=== PATIENT | male | born 1980 | race Caucasian/White ===

== ENCOUNTER 2016-12-17 18:33 | Emergency (ER) | payer BC ==
[2016-12-17] MEDS ORDERED: Sodium Chloride 0.9% 1000 ML 1,000 ML IV SCH (19:15)
[2016-12-17] MEDS ORDERED: CLINDAMYCIN-D5W 900 MG/50 ML*** 50 ML IV ONE ×2 (19:17→19:21)
[2016-12-17] MEDS ORDERED: Sodium Chloride 0.9% 1000 ML 1,000 ML ONE (19:22)
--- NOTE | 2016-12-17 19:23 | ERPHSYRPT ---
- History of Present Illness Time Seen by Provider: 12/17/16 19:05 Source: patient Exam Limitations: no limitations Patient Subjective Stated Complaint: patients left foot is swollen and hot to touch Triage Nursing Assessment: pt alert and oriented no other difficulties was out in yard doing work cleaning stuff up and his foot began to swell left foot is swollen red and hot to touch pedal pulse present has some red heading up ankle Physician History: PT WAS DOING SOME YARD WORK AT A FRIEND'S HOME AND AT 1300 YESTERDAY PT NOTICED HIS LEFT FOOT WAS RED, SWOLLEN AND TENDER TO TOUCH. PT DENIES FEVER, NAUSEA, VOMITING, NUMBNESS. Allergies/Adverse Reactions: No Known Drug Allergies Allergy (Unverified 12/17/16 18:51) Hx Tetanus, Diphtheria Vaccination/Date Given: Yes Hx Influenza Vaccination/Date Given: No Hx Pneumococcal Vaccination/Date Given: No Immunizations Up to Date: Yes - Review of Systems Constitutional: No Fever Abdominal/Gastrointestinal: No Nausea, No Vomiting Musculoskeletal: Other (LEFT FOOT SWELLING, TENDERNESS AND REDNESS.) Neurological: No Sensory Changes All Other Systems: Reviewed and Negative - Past Medical History Pertinent Past Medical History: Yes Psycho-Social History: Anxiety, Depression - Past Surgical History Past Surgical History: Yes Musculoskeletal: Orthopedic Surgery Other Surgical History: steel pplate in pelvis - Social History Smoking Status: Current every day smoker Drug Use: none - Nursing Vital Signs Nursing Vital Signs: Initial Vital Signs Pulse Rate 94 Respiratory Rate 18 Blood Pressure [Left Arm] 114/78 Pain Intensity 2 - Physical Exam General Appearance: alert Eyes, Ears, Nose, Throat Exam: TMs normal, pharynx normal, moist mucous membranes Neck Exam: normal inspection Cardiovascular/Respiratory Exam: normal breath sounds, heart sounds normal Gastrointestinal/Abdominal Exam: soft (B.S. NORMAL) Back Exam: normal range of motion Hips Exam: left: normal range of motion Legs Exam: left leg: normal range of motion Knees Exam: left knee: normal range of motion Ankle Exam: left ankle: normal range of motion, soft tissue tenderness (MILD EDEMA, ERYTHEMA AND TENDERNESS.) Foot Exam: left foot: soft tissue tenderness (MILD EDEMA, ERYTHEMA AND TENDERNESS OF THE LEFT FOOT.) Neuro/Tendon Exam: normal sensation Mental Status Exam: alert, cooperative Skin Exam: other (SUPERFICIAL LINEAR ABRASSIONS ON THE DORSAL ASPECT OF THE LEFT FOOT) SpO2 Interpretation: normal SpO2: 98 Oxygen Delivery: Room Air - Course Nursing assessment & vital signs reviewed: Yes Ordered Tests: Active Orders 24 hr Category Date Time Status IV Insertion STAT Care 12/17/16 19:15 Active BLOOD CULTURE Stat Lab 12/17/16 19:30 Received CBC W DIFF Stat Lab 12/17/16 19:15 Completed CMP Stat Lab 12/17/16 19:15 Completed Erythrocyte Sedimentation Rate Stat Lab 12/17/16 19:15 Received Medication Summary Generic Name Dose Route Start Last Admin Trade Name Freq PRN Reason Stop Dose Admin Sodium Chloride 1,000 mls @ 100 mls/hr 12/17/16 19:15 12/17/16 19:23 Sodium Chloride 0.9% 1000 Ml IV 01/16/17 19:14 100 mls/hr .Q10H RAÚL Administration Discontinued Medications Generic Name Dose Route Start Last Admin Trade Name Freq PRN Reason Stop Dose Admin Clindamycin HCl/Dextrose 50 mls @ 100 mls/hr 12/17/16 19:17 12/17/16 19:23 Clindamycin-D5w 900 Mg/50 Ml IV 12/17/16 19:46 100 mls/hr STAT ONE Administration Clindamycin HCl/Dextrose Confirm 12/17/16 19:21 Clindamycin-D5w 900 Mg/50 Ml Administered 12/17/16 19:22 Dose 50 mls @ ud IV .STK-MED ONE Lab/Rad Data: Laboratory Result Diagrams 12/17/16 19:15 12/17/16 19:15 Laboratory Results 12/17/16 12/17/16 Range/Units 19:15 19:15 WBC 8.6 (4.0-10.5) K/mm3 RBC 4.47 (4.1-5.6) M/mm3 Hgb 14.0 (12.5-18.0) gm/dl Hct 40.7 L (42-50) % MCV 91.1 (78-100) fl MCH 31.3 (26-32) pg MCHC 34.4 (32-36) g/dl RDW 12.8 (11.5-14.0) % Plt Count 224 (150-450) K/mm3 MPV 9.3 (6-9.5) fl Gran % 67.8 H (36.0-66.0) % Lymphocytes % 18.4 L (24.0-44.0) % Monocytes % 11.5 (0.0-12.0) % Eosinophils % 2.1 (0.00-5.0) % Basophils % 0.2 (0.0-0.4) % Basophils # 0.02 (0-0.4) Sodium 137 (136-145) mEq/L Potassium 3.8 (3.5-5.1) mEq/L Chloride 102 (98-107) mEq/L Carbon Dioxide 24.7 (21-32) mEq/L Anion Gap 14.3 (5-15) MEQ/L BUN 14 (9-20) mg/dL Creatinine 1.21 (0.55-1.30) mg/dl Estimated GFR > 60 ML/MIN Glucose 111 H (70-110) MG/DL Calcium 8.5 (8.5-10.1) mg/dL Total Bilirubin 1.0 (0.2-1.0) mg/dL AST 77 H (15-37) U/L ALT 160 H (12-78) U/L Alkaline Phosphatase 66 (46-116) U/L Serum Total Protein 7.3 (6.4-8.2) gm/dL Albumin 3.5 (3.4-5.0) g/dL - Departure Time of Disposition: 20:22 Departure Disposition: Home Clinical Impression: CELLULITIS OF THE LEFT FOOT & ANKLE. Condition: Fair Critical Care Time: No Referrals: ASAEL JAY MD [Primary Care Provider] - Instructions: Cellulitis -- Adult Additional Instructions: FOLLOW UP WITH PRIVATE DOCTOR TOMORROW. ELEVATE LEFT FOOT ABOVE HEART LEVEL FOR 24 HOURS. Prescriptions: Naproxen [Naprosyn] 500 mg PO Q12H PRN PRN #20 tablet PRN Reason: Pain Clindamycin HCl 300 mg PO Q6H #40 capsule
[2016-12-17 19:45] LABS: BASOPHIL % 0.2 % (0.0-0.4); Eosinophil % 2.1 % (0.00-5.0); Granulocytes % 67.8 % (36.0-66.0); Lymphocytes % 18.4 % (24.0-44.0); Mean Cell Volume 91.1 fl (78-100); Mean Corpuscular Hemoglobin 31.3 pg (26-32); Mean Platelet Volume 9.3 fl (6-9.5); Monocytes % 11.5 % (0.0-12.0); Platelet Count 224 K/mm3 (150-450); Red Blood Count 4.47 M/mm3 (4.1-5.6); Red Cell Distribution Width 12.8 % (11.5-14.0); White Blood Count 8.6 K/mm3 (4.0-10.5)
[2016-12-17 20:03] LABS: ALBUMIN 3.5 g/dL (3.4-5.0); ALKALINE PHOSPHATASE 66 U/L (46-116); ANION GAP 14.3 MEQ/L (5-15); BLOOD UREA NITROGEN 14 mg/dL (9-20); CHLORIDE 102 mEq/L (98-107); Carbon Dioxide 24.7 mEq/L (21-32); Glucose 111 MG/DL (70-110); Potassium 3.8 mEq/L (3.5-5.1); SGOT/AST 77 U/L (15-37); SGPT/ALT 160 U/L (12-78); SODIUM 137 mEq/L (136-145); Total Protein 7.3 gm/dL (6.4-8.2)
[2016-12-17] MEDS ORDERED: NORCO 5/325 MG PO ONE (20:26)
[2016-12-17] MEDS ORDERED: NORCO 5/325 MG ONE (20:27)
[2016-12-17 20:40] VITALS: BP 133/87; PULSE 73; O2SAT 100
== END 2016-12-17 20:39 | disposition home or self-care (01) ==
LOC: ED 18:33
DX: L03.116 Cellulitis of left lower limb (principal)
CPT/HCPCS: 36415; 80053; 85025; 85652; 87040; 96360; 96361; 96365; 99284; A9270-GY